=== PATIENT | female | born 1990 | race Caucasian/White ===

== ENCOUNTER 2016-12-04 07:23 | Emergency (ER) | payer BC ==
[2016-12-04] MEDS ORDERED: KETOROLAC TROMETHAMINE 30 MG/ML VIAL IV ONE (08:01)
[2016-12-04] MEDS ORDERED: NORMAL SALINE 1,000 ML IV ONE (08:01)
[2016-12-04] MEDS ORDERED: PROMETHAZINE HCL 25 MG in DEXTROSE 5 % IN WATER 50 ML IV ONE ×2 (08:02)
--- NOTE | 2016-12-04 08:03 | ERNOTE ---
Headache ER HPI - Narrative Date of Service: 12/04/16 - General Presenting Symptoms: "migraine" Time Seen by Provider: 12/04/16 08:01 Source: patient Exam Limitations: no limitations - Immun/Allergies/Home Medications Immunizations: IMMUNIZATION HX Immunizations Up to Date Yes History of Influenza Vaccine Yes Allergies/Adverse Reactions: Allergies No Known Allergies Allergy (Verified 06/18/16 17:38) Home Medications: HOME MEDICATIONS NK [No Home Medication] 12/04/16 [Last Taken Unknown] - History of Present Illness Narrative: Patient presents with a "migraine" headache. She relates this is exactly like what she has had before. There is nothing different about this BEAVERS. Fron of head throbbing. Photophobia and vomiting. Started overnight. She takes Ibuprofen at home for this. She denies any recent illnesses, no fever, no dysuria, no ST. She relates the pain is severe but in a pattern exactly like prior BEAVERS's, not the worse headache of her life. Nothing makes it better or worse. Photophobia noted. no focal N/T/W. Activity at onset: other - none Timing of Headache: gradual, still present, persistent Context Headache: Present: other - history of "migraine", history of exact same BEAVERS and has been to the ER before. Severity Maximum: Present: severe Severity-Currently: Present: severe Headache frequency: Present: occasional headaches, similar to previous headache Modifying Factors - (Improves): Reports: other - none Modifying Factors - (Worsens): Reports: exposure to light Associated Symptoms: Reports: nausea, vomiting. Denies: fever/chills, fatigue, weakness, numbness/tingling, loss of consciousness, seizures, neck pain/ stiffness Exacerbated by:: Reports: light Review of Systems - Review of Systems Constitutional: Absent: fever EYE: Present: see HPI ENT: Present: no symptoms reported Respiratory: Present: no symptoms reported Cardiology: Present: no symptoms reported Gastrointestinal/Abdominal: Present: nausea, vomiting. Absent: abdominal pain Genitourinary: Absent: dysuria Skin: Present: no symptoms reported Neurological: Present: See HPI - Patient's Past Medical History Patient History - Medical: Anxiety, Depression, Other Patient History - Cardiac/Respiratory: No pertinent hx Patient History - Cancer: No Hx of Cancer Patient History - Surgical Procedures: Cholecystectomy, T & A, Other LMP (females 10-50): 3 weeks - Social History Living Situations: home Smoking Status: Current every day smoker Have you smoked in the past 12 months: Yes Alcohol Use: occasionally Drug Use: none Physical Exam - Physical Exam General Appearance: Present: alert, no apparent distress, other - wearing sunglasses. Eye Exam: Normal inspection: bilateral, PERRL: bilateral, EOMI: bilateral Ears, Nose, Throat: Present: normal ENT inspection, normal pharynx. 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 Absent: motor weakness DTR: N=norm/NB=norm/brisk/A=abs/DD=dull/dimin/HC=hyperactive: Knee (R): Normal, Knee (L): Normal Skin Exam: Absent: skin rash ED Progress - Vital Signs Patient's Vital Signs:: I have reviewed the patient's vital signs. Vital Signs: Vital Signs 12/04/16 07:30 Temperature 35.9 C L Respiratory 79 H Rate Blood Pressure 138/88 O2 Sat by Pulse 96 Oximetry - Progress/Reassessment Chief Complaint: Headache Progress:: Improved Progress Note-Subjective: 12/04/16 08:53 Nearly resolved. She feels like going home. No fever. Just like prior HAs. nothing different about it. Nothing to suggest SAH, ICH, meningitis or other acute life threat. Departure Clinical Impression: Headache - Departure Disposition: Home self-care Condition: Stable Instructions: Recurrent Migraine Headache, [id number] Additional Instructions: Rest. FLuids. Follow-up with your primary doctor within 3-5 days for a re- check. Return for increased pain, fever, vomiting, numbness, tingling, weakness or if your condition worsens or changes in any way.
[2016-12-04] MEDS ORDERED: KETOROLAC TROMETHAMINE 30 MG/ML VIAL ONE (08:04)
[2016-12-04 09:01] VITALS: BP 148/79
== END 2016-12-04 09:10 | disposition home or self-care (01) ==
LOC: ER 07:23
DX: R51 Headache (principal); F17.210 Nicotine dependence, cigarettes, uncomplicated